=== PATIENT | male | born 1960 | race Caucasian/White ===

== ENCOUNTER 2017-03-23 22:37 | Observation (INO) | payer OTHER ==
[~2017-03-23] VITALS: Ht 180.3 cm; Wt 100.5 kg
[2017-03-23 23:48] VITALS: PULSE 70
[2017-03-23 23:56] VITALS: BP 172/81; PULSE 69; RESP 18; O2SAT 93
[2017-03-24] VITALS (8 sets, daily range): BP systolic 107–183; BP diastolic 73–97; PULSE 62–87; RESP 18–20; O2SAT 93–98
[2017-03-24] MEDS ORDERED: MTH10T PO (00:32)
[2017-03-24] MEDS ORDERED: METH5SOL PO (00:32)
[2017-03-24] MEDS ORDERED: LISI10TA PO ×2 (00:32→16:28)
[2017-03-24] MEDS ORDERED: OXYC-474 PO (00:32)
[2017-03-24] MEDS ORDERED: LAC10 PO ×2 (00:32→16:28)
[2017-03-24] MEDS ORDERED: THIA100T64 PO ×2 (00:32→16:28)
[2017-03-24] MEDS ORDERED: HYDR25TA4 PO ×2 (00:32→16:28)
--- NOTE | 2017-03-24 00:33 | NUR ---
Admit Pt to floor from [facility] at 2340. Denies any chest pain. States chronic back pain. Oriented and alert, but somewhat drowsy. States he received usual home dose of methadone at [place]. MD here to see patient.
[2017-03-24] MEDS ORDERED: Senna-Docusate 8.6-50 mg Tablet PO PRN (00:50)
[2017-03-24] MEDS ORDERED: Polyethylene Glycol (PEG) 17 Gm Powder PO PRN (00:50)
[2017-03-24] MEDS ORDERED: Alum-Mag Hydrox-Simeth 30 mL Suspension PO PRN (00:50)
[2017-03-24] MEDS ORDERED: Ondansetron 2 mg/mL 2 mL Inj IVPUSH PRN (00:50)
--- NOTE | 2017-03-24 01:38 | PCM.HPMED ---
Subjective Date of Service March 24, 2017 Primary Provider: Admitting Physician: Belén العراقي DO Primary Care Physician: Guanaco Messina MD Attending Physician: Belén العراقي DO Admit Status: Direct Admit ([place]) Chief Complaint: chest pain and left arm pain History of Present Illness: Juan is a 56 yo left handed male with history of HTN, alcoholic hepatitis, chronic pain on Methadone, and tobacco dependence who presents from [facility] for further evaluation of his chest pain. Patient originally reported to his PCP for left sided dull chest pain x 1 week with left arm numbness. He was found to have a mildly abnormal EKG and unequal arm BP measurements, so he was sent to the ED for further evaluation. He reports the CP has been intermittent for the past 6 months, but the arm numbness is new. He has no knowledge about the arm BP discrepancies. He describes his chest pain as right under his left nipple line and is dull in nature. Nothing triggers it, nothing makes it better or worse. It generally lasts 20-30 mins. The left arm numbness only began a few days ago. Originally was mostly in his left shoulder and elbow, but has now involved his left hand, specifically the first, second, and fifth digit. He denies any recent repetitive or hard labor or trauma. Has not noticed any specific trigger. With his CP, he denies any associated diaphoresis, n/v, cough, MCBRIDE, or vision changes. He has noted increasing SOB in the past few weeks. He reports only walking about 25-30 feet before getting winded. He sleeps only on 1 pillow at night and is comfortable with that. He also endorses occasional lightheadedness with getting up too fast or bending forward. He is not on any inhaler and does not think he has ever been diagnosed with COPD. He is currently on Lactulose TID, which he says is for his liver, but he does not think he has a history of hepatitis. His PO intake has been adequate and he denies any recent weight change. His notes his abdominal girth has been increasing in the past year. Has not been sick recently, denies any f/c , cough, or wheezing. He continues to be a heavy smoker, about 1.5 ppd, and has been going to since August. He continues to have a few drinks intermittently. At [facility] ED, he had an EKG that showed IVCD, LAD, and non specific ST changes. He had a chest CT that was remarkable for severe Aortic Stenosis. and high grade stenosis of right subclavian artery per report His CBC and CMP were unremarkable and his Troponin was negative x2 and CKMB was 3.4. formerly [facility] Cardiothoracic surgeon was consulted and would like ACS r/o prior to any aortic procedure. Review of Systems: Complete ROS neg except as stated in the HPI Allergies Coded Allergies: No Known Allergies (Unverified , 03/23/17) Home Medications Methadone TID Thiamine daily Lisinopril HCTZ Lactulose TID PMH CAD Aortic Stenosis and Right subclavian stenosis HTN Alcoholic Hepatitis H/o Pancreatitis Alcohol Abuse Tobacco Dependence Chronic LBP on methadone suspect COPD Surgical History Reports Right knee surgery Bilateral ankle surgeries Family History Family history of alcoholism Social History Occupation: unemployed Hx Alcohol Use: Yes (Reports only 2-3 drinks per week now. Currently in AA) Hx Substance Use: No Hx Tobacco Use: Yes Smoking Status: Current Every Day Smoker Living Arrangement: with Family Exam Vital Signs Vital Sign - Last Date Time Temp Pulse Resp B/P Pulse Ox O2 Delivery O2 Flow Rate FiO2 03/23/17 23:56 36.7 69 18 172/81 93 Room Air Exam Gen: Obese male who appears in NAD while laying in bed, A&Ox3 HEENT: NC/AT, PERRLA, EOMI, sclera anicteric, oropharynx mildly dry, but pink. Neck: soft, NT, no JVD noted, positive hepatojugular reflux CV: Distant heart sounds, but RRR with harsh systolic murmur, Decreased left radial pulse Resp: CTAB, no w/r/c, normal resp effort, no cough Abd: Obese, mildly distended, tympanic to percussion, non tender, NABS MSK: MS grossly intact and equal, 3-4cm round fluctuant cyst on right medial wrist, not tender to palpation, no erythema. No clubbing or cyanosis noted. Neuro: No focal weakness, speaks fluent sentences, gait steady and normal. No tremors Skin: Warm, dry, intact, small scattered telangiectasias on abdomen and back Psych: Appropriate mood and affect, linear thought process, cooperative Assessment & Plan Juan is a 56 yo left handed male with history of HTN, alcoholic hepatitis, chronic pain on Methadone, and tobacco dependence who presents from [facility] for left sided dull chest pain x 1 week with left arm numbness. chest pain, POA Patient here for further eval of his left intermittent CP and left arm numbness. DDx unstable angina, vascular insufficiency, arrhythmia, Troponin neg x2 at [facility], and EKG did not show any acute changes. Will Trend one more value. Will place on Telemetry for CV monitoring Complete Echo in the AM, lipid panel, hgbA1c pending ASA given prior to transfer, no BB on admission with HR in the 60s Will hold off on Stress test due to severe until cardiology consultation Please consult cardiology in the AM, Dr. Rao was consulted prior to transfer and accepted admission CAD, POA Extensive atherosclerosis noted on his CT chest. Will continue his Lisinopril and HCTZ for now. ASA 81 daily started Lipid panel in the AM Aortic Stenosis and Subclavian Stenosis, POA Will need outpatient follow up with [facility] CT surgeons Will ask [facility] to push CT images to [facility] to clarify which arm had the high grade stenosis. His left arm pain could be due to subclavian steal. HTN, POA Elevated on admission today from right arm measurement. Will continue his home meds, but may need titration Alcoholic Hepatitis, POA LFTs stable, will continue his home Lactulose If abd increasingly distended, consider imaging Chronic pain on Methadone, POA Will continue his home Methadone dosing and Oxycodone 5mg prn break through pain Tobacco Dependence, POA Nicotine patch prn Alcohol Abuse, POA Patient reports only 2-3 drinks per week. Has been going to AA and not drinking heavily since August 2016. Will continue to monitor and place on CIWA if needed. Continue patient's thiamine Tylenol prn fever/pain Zofran prn nausea Code Status: Full Code Dispo: Pt admitted under obs status, Expected LOS <2 midnights, due to risk of adverse events, medical complexity, and decompensation. Pain Evaluation: Adequate Pain Control VTE Prophylaxis: Sub-Q Heparin (Unfractionated), SCDs Resuscitation Status: CPR: Attempt Resuscitation Attending Statement The patient was seen and examined together with house staff on 03/24/2017 and I agree with the history, exam and plan as outlined in the note above. Alexey Nelson DO March 24, 2017 00:57 Belén العراقي DO March 24, 2017 03:44
--- NOTE | 2017-03-24 04:22 | NUR ---
Sats Pt scored high risk for sleep apnea and is taking narcotics for pain. Placed on continuous pulse oximetry while sleeping. Room air sats have been in mid-upper 90's. Denies any chest pain. SCD's on, and tolerating these OK.
[2017-03-24 06:28] LABS: BASOPHILS % (AUTO) 0.6 % (0-3); EOSINOPHILS % (AUTO) 7.2 % (0-5); MONOCYTES % (AUTO) 14.9 % (4-12); Mean Corpuscular Hemoglobin 31.8 pg (27.0-35.0); Mean Corpuscular Volume 97.8 fL (81-100); NEUTROPHILS % (AUTO) 49.4 % (40-74); Platelet Count 124 bil/L (150-400)
[2017-03-24 07:15] LABS: Creatine Kinase 149 U/L (21-232)
[2017-03-24 07:24] LABS: TROPONIN T < 0.010 ug/L (0.0-0.011)
[2017-03-24 07:51] LABS: APPEARANCE,URINE CLEAR (CLEAR,HAZY); COLOR,URINE YELLOW (YELLOW); OCCULT BLOOD,URINE MODERATE (NEGATIVE); PH,URINE 5.5 (5.0-8.0); UROBILINOGEN,URINE NORMAL (NORMAL)
[2017-03-24] MEDS ORDERED: Heparin 5,000 Unit/mL Inj SUBQ SCH (08:30)
[2017-03-24] MEDS ORDERED: Sodium Chloride LOK Flush 10 mL Syringe IVFLUSH SCH (08:30)
--- NOTE | 2017-03-24 08:47 | NUR ---
Social Work: Screening Data: Pt is a 56 y/o male admitted for chest pain resolved. Pt's PCP is Dr Messina, pt's insurance is [employer]. EMR reviewed. No d/c planning needs anticipated at this time. PHOTONICS TECHNICIAN will continue to follow if needs arise. Assessment: Pt who is independent at baseline. Plan: Pt will d/c home via POV when medically stable. No d/c planning needs anticipated at this time. PHOTONICS TECHNICIAN will continue to follow if needs arise. ASHLEY Naqvi
[2017-03-24] MEDS: Lactulose 20 Gm/30 mL 30 mL Syrup PO SCH ×2 (09:15→14:29)
--- NOTE | 2017-03-24 14:35 | CONS ---
[address] [address] CONSULTATION REPORT PATIENT: XAVI ESCOTO : 1960 MR#: [id number] ADMIT: 03/23/2017 JOB ID: [id number] DATE OF SERVICE: 03/24/17 CARDIOLOGY CONSULTATION: IDENTIFICATION: Dr. العراقي has asked that I consult on this 56-year-old male admitted in transfer from [facility] with persistent chest discomfort and aortic arch disease. He denies any previous cardiac history although had a longstanding history of hypertension and tobacco addiction. He reports feeling well up until around two weeks ago when he ran out of his medications. Around 10 days ago, he noted worsening exertional dyspnea as well as a sharp steady pain in the left breast area that was persistent, there more than not, present around 90% of the time. This radiated somewhat into his left arm and he noted some left little finger and thumb numbness with reduced muscle strength with mild diffuse weakness. He felt that the discomfort worsened somewhat with exertion and activity although was persistent. He denies any other radiation and there is no pleuritic component or positional component to his discomfort. He has also noted progressive fatigue and reduced exercise capacity over the last few months. He denies any palpitations and notes no lightheadedness or presyncope except for when looking upward. He has never fallen or passed out. He was not checking his blood pressures at home. He denies any sense of claudication or resting dyspnea. He presented to Dr. Ceballos, his PCP, who noted disparate blood pressures in both arms and directed him to the emergency department. His EKG there showed a left anterior fascicular block but was otherwise normal and he had serial normal components. A CT angiogram was performed which I have personally reviewed with the radiologist here. This shows a 75% irregular stenosis at the aortic arch at the origin of the left subclavian artery which is likely occluded although reconstituted, likely by vertebral artery collaterals. There is sparing of the right subclavian artery and carotids. There is no evidence for any dissection. [facility] Cardiothoracic Surgery was consulted and recommended admission for rule out. Since admission, the patient continues to have mild persistent chest discomfort but does admit that it improved somewhat since his blood pressure has improved. CARDIAC RISK FACTORS: Longstanding history of hypertension, and has smoked two packs per day for 45 years, currently smoking 1-1/2 packs per day. He denies any history of diabetes and is uncertain of his cholesterol status. He has a fairly strong family history of coronary artery disease with mother requiring CABG in her 50s and a brother dying at age 37 from a heart attack. PAST MEDICAL HISTORY: Notable for alcohol abuse for which he is currently in since August 2016 and is currently drinking three beers twice a week for a total of six beers per week. He has a history of alcoholic hepatitis and pancreatitis. He has opioid dependent chronic low back pain on methadone and has probable COPD although he states this has never been diagnosed. He is status post right knee surgery and bilateral ankle surgery. MEDICATIONS: 1. Methadone 10 mg 4 tablets daily. 2. Percocet p.r.n. 3. Thiamine 100 mg daily. 4. Lactulose 45 mL three times a day. 5. Lisinopril 20 mg daily. 6. Hydrochlorothiazide 25 mg daily. ALLERGIES: No known drug allergies. FAMILY HISTORY: As above. 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 REVIEW OF SYSTEMS: A complete review is performed and is notable for the absence of any recent fevers or chills. He admits to a 10-pound weight gain over the last several months. He denies any recent vision change or ENT problems. Denies any chronic cough or sputum production or hemoptysis. Denies any peptic ulcer disease or GI blood loss. Denies any genitourinary complaints or hematuria. No unusual musculoskeletal complaints. Denies any previous stroke or other neurologic symptoms. Denies any history of thyroid or bleeding disorder. No history of any unusual anxiety or depression. PHYSICAL EXAMINATION: Pleasant, moderately obese white male, in no distress. HR 69, BP 173/84 in the right arm, 124/85 in the left arm. Weight 100.5 kg. O2 saturation is 93% on room air. Skin: Warm and dry. HEENT: EOMI without arcus. Has moderately poor dentition. Lungs: Hyperresonant to percussion with diffusely reduced breath sounds with coarse expiratory wheeze. No rales. CV: Nonpalpable PMI with a regular rate and rhythm with a soft S1 and S2 with a 1/6 systolic ejection murmur at the upper sternal border. There is a fairly prominent bruit noted in the left upper chest with radiation to both carotids which have a normal upstroke. JVP is 4-5 cm. Femoral pulses are 2+ bilaterally without bruit and dorsalis pedis pulses are 2+ bilaterally. Posterior tibial pulses are nonpalpable. Abdomen: Mildly obese, but slightly distended, but nontender with normal bowel tones and no bruits. Extremities: Warm without any clubbing, cyanosis or edema. He has good capillary refill in both hands including the left. Neuro: Moves all four extremities. Psych: Awake, alert and oriented. LABORATORY: White count 4.8 with hematocrit of 36% and a platelet count of a 124,000. Potassium 4.5 with a BUN of 19 and a creatinine of 0.75. Glucose 104. A1c pending. Troponin remained normal. LDL is 78 with a total cholesterol of 139, and an HDL of 47. TSH 2.3. ECG: ECG shows sinus rhythm with a mild first-degree AV block with a ME interval of 216 msec with probable LVH and a borderline left anterior fascicular block but no significant ST-segment shifts. IMPRESSION: 1. Chest pain. My suspicion for an acute coronary syndrome is extremely low given his persistent chest discomfort with now serial negative troponins and no concerning ECG abnormalities. I doubt that his chest discomfort is related to his aortic disease given that there does not appear to be any significant hemodynamic impact although his discomfort could be a reflection of his significant hypertension since stopping his medications. In addition, it is conceivable he could have some chest wall discomfort from his occluded left subclavian artery. I do not believe that he requires any acute ischemic evaluation although he is at risk for having significant underlying coronary artery disease given his multiple risk factors, and known PAD, and should undergo a myocardial perfusion imaging test, particularly if vascular surgery is being contemplated, but this can be deferred to the outpatient setting. Otherwise I would focus on his risk factor modification. 2. 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 I do not see any critical limb ischemia and he actually has fairly good capillary refill in his left hand. He has good distal pulses in his feet and all this would suggest the absence of any significant hemodynamic impact from his peripheral arterial disease although he could have some left arm claudication if his collaterals are insufficient. Again, I do not believe this requires any emergent evaluation or treatment as there is no evidence for any acute critical limb ischemia. I would recommend that he see a vascular surgeon as an outpatient to assess further his therapeutic options. 3. Hypertension. Some of his discomfort certainly could be a reflection of his significant hypertension since running out of his medications and this now appears to have improved. I would track his right upper arm blood pressure rather than his left, attempting to get his systemic blood pressure down to at least less than 140 as long as this does not provoke any evidence of reduced perfusion in his left upper extremity. I agree with resumption of his previous medications with perhaps some advancement of his lisinopril. I would avoid beta blockade as he has a first-degree AV block already. 4. Relative hyperlipidemia. While his cholesterol numbers are relatively good, with his known atherosclerotic disease, he should be started on statin therapy with close observation of his liver function given his history of alcohol hepatopathy. I would start at atorvastatin 20 mg daily, but this should be monitored closely. 5. Nicotine addiction. I spent considerable time with he and his discussing the need for tobacco abstinence for both of them. This should be supported. 6. Probable COPD. He clearly has a physical exam consistent with significant COPD. 7. History of alcohol abuse. Currently apparently in fairly good remission although he continues to drink some. RECOMMENDATION: 1. Resume his home medications with consideration for increasing his lisinopril to target a right upper extremity blood pressure in the 130-150 range as long as this does not provoke any evidence for vascular insufficiency in his left upper arm. 2. Check an echocardiogram to ensure the absence of any significant underlying ventricular or valvular heart disease. 3. Start atorvastatin 20 mg daily but with close observation of his liver function with advancement of his atorvastatin to maintain an LDL less than 70. 4. If his echocardiogram shows no concerning abnormalities and his blood pressure becomes adequately controlled, then I think he can be discharged with an outpatient myocardial perfusion study and outpatient referral to vascular surgery, but this can be deferred to his primary care physician. 5. Continue to support alcohol and tobacco abstinence. At this point, I will sign off. If you have any further questions or concerns, please do not hesitate to give me a call. I spent 1 hour and 58 minutes reviewing the patient's medical record, reviewing his imaging studies with the radiologist, interviewing and examining the patient, and answering his questions.
--- NOTE | 2017-03-24 15:02 | NUR ---
Pain/Blood Pressure Patient resting in bed. stated that he had 8/10 back pain that is chronic and 3/10 left sided chest pain that is achy and intermittent. oxycodone given @ 1430 and patient was asleep when returning to reassess pain. MD notified of chest pain. he stated it was now a 7/10. patient denies radiating pain, dizziness or shortness of breath. Patient noted to have change in blood pressure in left vs right arm. MD notified. see flow sheet.
--- NOTE | 2017-03-24 16:25 | PCM.DIMED ---
Discharge Instructions Date of Service March 24, 2017 Dates of Hospitalization March 23, 2017 at 23:46 Discharge Diagnosis Discharge Diagnosis Chest discomfort, PR ruled our, recommend outpatient MIBI Aortic Arch stenosis, recommend vascular surgery evaluation soon as out patient Diet Heart Healthy Activity Limited until seen by PCP Call your provider Chest pain Patient Instructions follow up with your doctor next few days. Follow-up with PCP in: 1 week Tiffani Colon MD March 24, 2017 16:25
[2017-03-24] MEDS ORDERED: ATOR20TA65 PO (16:28)
[2017-03-24] MEDS ORDERED: ASPI-973 PO (16:30)
--- NOTE | 2017-03-24 16:33 | DRSVH ---
[facility] [address] [place] [address] Echocardiogram Report Name: XAVI ESCOTO DStudy Date: 10/2017 Height: 71 in Hospital Exam Location: [facility] Weight: 222 lb Gender: Male BSA: 2.2 m2 : 1960 Age: 56 yrs BP: 183/97 mmHg Reason For Study: Chest pain Ordering Physician: Performed By: Suze PAIST [facility] Interpretation Summary The left ventricle is grossly normal size. The ejection fraction is estimated to be 55-60%. Borderline right ventricular enlargement. The right ventricular systolic function is normal. No significant valvular pathology seen. The ascending aorta is mildly enlarged. Procedure: A two-dimensional transthoracic echocardiogram with color flow and Doppler was performed. The study quality was technically adequate. There is no prior echocardiogram noted for this patient. A contrast injection of Definity was performed to improve assessment of LV function. The patient was in normal sinus rhythm during the exam. Left Ventricle: The left ventricle is grossly normal size. Proximal septal thickening is noted. There is no echo evidence for significant left ventricular outflow tract obstruction. A false chord is noted (normal variant). The ejection fraction is estimated to be 55-60%. There are no focal wall motion abnormalities. Spectral Doppler of the mitral valve shows a normal E/A wave ratio. The E/E' ratio is abnormal. Right Ventricle: Borderline right ventricular enlargement. The right ventricular systolic function is normal. Atria: Both atria are normal in size. There is no Doppler evidence for an interatrial shunt. Mitral Valve: There is mild mitral annular calcification. There is trace mitral regurgitation. Aortic Valve: The aortic valve is slightly calcified. The aortic valve is trileaflet. The aortic valve opens well. There is no aortic valve stenosis. There is trace aortic regurgitation. Tricuspid Valve: The tricuspid valve is normal in structure and function. Pulmonary artery pressures cannot be estimated because of the lack of a measurable TR jet velocity. There is trace tricuspid regurgitation. Pulmonic Valve: The pulmonic valve is not well seen, but is grossly normal. Great Vessels: The aortic root is normal size. The ascending aorta is mildly enlarged. The aortic arch could not be visualized. The IVC is of normal diameter and collapses greater than 50% with a sniff. This suggests a low right atrial pressure of 3 mm Hg. Pericardium/ Pleura There is no pericardial effusion. There is an anterior echo-free space consistent with a fat pad. MMode/2D Measurements & Calculations LVIDd: 4.9 cm RA long axis LVOT diam LVIDs: 3.3 cm LA A2 area: 22.1 cm FS: 33.6 % LA A4 area: 22.2 cm RA area Ao root diam EPSS: 0.60 cm LA length (vol): 6.1 cm IVSd: 0.99 cm LA vol: 68.2 ml : 16.8 cm asc Aorta LVPWd: 1.0 cm LA vol index RA vol: 44.6 mlDiam: 3.5 cm RA : 20.2 mm2 IVC diam: 1.9 cm LV barnes. diameter/BSA LV sys. diameter/BSA RVD1 (basal) RVD2 (mid) (cm/m^2): 2.2 (cm/m^2): 1.5 : 2.3 cm TAPSE: 2.4 cm Doppler Measurements & Calculations Ao V2 max MV E max saeid MV E/A: 1.1 PA V2 max : 105.7 cm/sec : 77.4 cm/sec Med Peak E' Saeid : 65.8 cm/sec Ao max PG MV A max saeid PA mean PG : 4.5 mmHg : 72.9 cm/sec E/E' med: 11.9 : 0.98 mmHg Ao mean PG MV P1/2t: 81.4 msec Lat Peak E' Saeid PA Accel Time : 0.09 sec LVOT Max Saeid E/E' lat: 7.5 : 78.9 cm/sec E/e' average: 9.7 JOSEPH(I,D): 3.4 cm sev ratio MV dec time MV P1/2t max saeid Ao V2 mean LV V1 max PG : 0.27 sec : 80.8 cm/sec MVA(P1/2t): 2.7 cm2 Ao V2 VTI: 27.1 cm LV V1 VTI JOSEPH(V,D): 3.7 cm2 : 18.5 cm PA V2 mean JOSEPH indexed to BSA : 47.0 cm/sec (cm^2/m^2): 1.5 Reading Physician:TERE
--- NOTE | 2017-03-24 16:36 | PCM.DC.MED ---
Discharge Summary Date of Service March 24, 2017 Dates of Hospitalization Date of Hospital Admission March 23, 2017 at 23:46 Date of Discharge: March 24, 2017 Providers: Admitting Physician: Belén العراقي DO Primary Care Physician: Guanaco Messina MD Attending Physician: Belén العراقي DO Diagnosis at Time of Discharge Diagnosis at Time of Discharge Chest discomfort, DE ruled our, recommend outpatient MIBI Aortic Arch stenosis, recommend vascular surgery evaluation soon as out patient Consultations CONSULTATION REPORT PATIENT: XAVI ESCOTO : 1960 MR#: [id number] ADMIT: 03/23/2017 JOB ID: [id number] DATE OF SERVICE: 03/24/17 CARDIOLOGY CONSULTATION: IDENTIFICATION: Dr. العراقي has asked that I consult on this 56-year-old male admitted in transfer from [facility] with persistent chest discomfort and aortic arch disease. He denies any previous cardiac history although had a longstanding history of hypertension and tobacco addiction. He reports feeling well up until around two weeks ago when he ran out of his medications. Around 10 days ago, he noted worsening exertional dyspnea as well as a sharp steady pain in the left breast area that was persistent, there more than not, present around 90% of the time. This radiated somewhat into his left arm and he noted some left little finger and thumb numbness with reduced muscle strength with mild diffuse weakness. He felt that the discomfort worsened somewhat with exertion and activity although was persistent. He denies any other radiation and there is no pleuritic component or positional component to his discomfort. He has also noted progressive fatigue and reduced exercise capacity over the last few months. He denies any palpitations and notes no lightheadedness or presyncope except for when looking upward. He has never fallen or passed out. He was not checking his blood pressures at home. He denies any sense of claudication or resting dyspnea. He presented to Dr. Ceballos, his PCP, who noted disparate blood pressures in both arms and directed him to the emergency department. His EKG there showed a left anterior fascicular block but was otherwise normal and he had serial normal components. A CT angiogram was performed which I have personally reviewed with the radiologist here. This shows a 75% irregular stenosis at the aortic arch at the origin of the left subclavian artery which is likely occluded although reconstituted, likely by vertebral artery collaterals. There is sparing of the right subclavian artery and carotids. There is no evidence for any dissection. [facility] Cardiothoracic Surgery was consulted and recommended admission for rule out. Since admission, the patient continues to have mild persistent chest discomfort but does admit that it improved somewhat since his blood pressure has improved. CARDIAC RISK FACTORS: Longstanding history of hypertension, and has smoked two packs per day for 45 years, currently smoking 1-1/2 packs per day. He denies any history of diabetes and is uncertain of his cholesterol status. He has a fairly strong family history of coronary artery disease with mother requiring CABG in her 50s and a brother dying at age 37 from a heart attack. PAST MEDICAL HISTORY: Notable for alcohol abuse for which he is currently in AA since August 2016 and is currently drinking three beers twice a week for a total of six beers per week. He has a history of alcoholic hepatitis and pancreatitis. He has opioid dependent chronic low back pain on methadone and has probable COPD although he states this has never been diagnosed. He is status post right knee surgery and bilateral ankle surgery. MEDICATIONS: 1. Methadone 10 mg 4 tablets daily. 2. Percocet p.r.n. 3. Thiamine 100 mg daily. 4. Lactulose 45 mL three times a day. 5. Lisinopril 20 mg daily. 6. Hydrochlorothiazide 25 mg daily. ALLERGIES: No known drug allergies. FAMILY HISTORY: As above. 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 REVIEW OF SYSTEMS: A complete review is performed and is notable for the absence of any recent fevers or chills. He admits to a 10-pound weight gain over the last several months. He denies any recent vision change or ENT problems. Denies any chronic cough or sputum production or hemoptysis. Denies any peptic ulcer disease or GI blood loss. Denies any genitourinary complaints or hematuria. No unusual musculoskeletal complaints. Denies any previous stroke or other neurologic symptoms. Denies any history of thyroid or bleeding disorder. No history of any unusual anxiety or depression. PHYSICAL EXAMINATION: Pleasant, moderately obese white male, in no distress. HR 69, BP 173/84 in the right arm, 124/85 in the left arm. Weight 100.5 kg. O2 saturation is 93% on room air. Skin: Warm and dry. HEENT: EOMI without arcus. Has moderately poor dentition. Lungs: Hyperresonant to percussion with diffusely reduced breath sounds with coarse expiratory wheeze. No rales. CV: Nonpalpable PMI with a regular rate and rhythm with a soft S1 and S2 with a 1/6 systolic ejection murmur at the upper sternal border. There is a fairly prominent bruit noted in the left upper chest with radiation to both carotids which have a normal upstroke. JVP is 4-5 cm. Femoral pulses are 2+ bilaterally without bruit and dorsalis pedis pulses are 2+ bilaterally. Posterior tibial pulses are nonpalpable. Abdomen: Mildly obese, but slightly distended, but nontender with normal bowel tones and no bruits. Extremities: Warm without any clubbing, cyanosis or edema. He has good capillary refill in both hands including the left. Neuro: Moves all four extremities. Psych: Awake, alert and oriented. LABORATORY: White count 4.8 with hematocrit of 36% and a platelet count of a 124,000. Potassium 4.5 with a BUN of 19 and a creatinine of 0.75. Glucose 104. A1c pending. Troponin remained normal. LDL is 78 with a total cholesterol of 139, and an HDL of 47. TSH 2.3. ECG: ECG shows sinus rhythm with a mild first-degree AV block with a [place] interval of 216 msec with probable LVH and a borderline left anterior fascicular block but no significant ST-segment shifts. IMPRESSION: 1. Chest pain. My suspicion for an acute coronary syndrome is extremely low given his persistent chest discomfort with now serial negative troponins and no concerning ECG abnormalities. I doubt that his chest discomfort is related to his aortic disease given that there does not appear to be any significant hemodynamic impact although his discomfort could be a reflection of his significant hypertension since stopping his medications. In addition, it is conceivable he could have some chest wall discomfort from his occluded left subclavian artery. I do not believe that he requires any acute ischemic evaluation although he is at risk for having significant underlying coronary artery disease given his multiple risk factors, and known PAD, and should undergo a myocardial perfusion imaging test, particularly if vascular surgery is being contemplated, but this can be deferred to the outpatient setting. Otherwise I would focus on his risk factor modification. 2. 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 I do not see any critical limb ischemia and he actually has fairly good capillary refill in his left hand. He has good distal pulses in his feet and all this would suggest the absence of any significant hemodynamic impact from his peripheral arterial disease although he could have some left arm claudication if his collaterals are insufficient. Again, I do not believe this requires any emergent evaluation or treatment as there is no evidence for any acute critical limb ischemia. I would recommend that he see a vascular surgeon as an outpatient to assess further his therapeutic options. 3. Hypertension. Some of his discomfort certainly could be a reflection of his significant hypertension since running out of his medications and this now appears to have improved. I would track his right upper arm blood pressure rather than his left, attempting to get his systemic blood pressure down to at least less than 140 as long as this does not provoke any evidence of reduced perfusion in his left upper extremity. I agree with resumption of his previous medications with perhaps some advancement of his lisinopril. I would avoid beta blockade as he has a first-degree AV block already. 4. Relative hyperlipidemia. While his cholesterol numbers are relatively good, with his known atherosclerotic disease, he should be started on statin therapy with close observation of his liver function given his history of alcohol hepatopathy. I would start at atorvastatin 20 mg daily, but this should be monitored closely. 5. Nicotine addiction. I spent considerable time with he and his discussing the need for tobacco abstinence for both of them. This should be supported. 6. Probable COPD. He clearly has a physical exam consistent with significant COPD. 7. History of alcohol abuse. Currently apparently in fairly good remission although he continues to drink some. RECOMMENDATION: 1. Resume his home medications with consideration for increasing his lisinopril to target a right upper extremity blood pressure in the 130-150 range as long as this does not provoke any evidence for vascular insufficiency in his left upper arm. 2. Check an echocardiogram to ensure the absence of any significant underlying ventricular or valvular heart disease. 3. Start atorvastatin 20 mg daily but with close observation of his liver function with advancement of his atorvastatin to maintain an LDL less than 70. 4. If his echocardiogram shows no concerning abnormalities and his blood pressure becomes adequately controlled, then I think he can be discharged with an outpatient myocardial perfusion study and outpatient referral to vascular surgery, but this can be deferred to his primary care physician. 5. Continue to support alcohol and tobacco abstinence. At this point, I will sign off. If you have any further questions or concerns, please do not hesitate to give me a call. I spent 1 hour and 58 minutes reviewing the patient's medical record, reviewing his imaging studies with the radiologist, interviewing and examining the patient, and answering his questions. Daniel Kim MD 03/24/17 1214 Procedures Cardiac Echo Impression At the time of discharge echo report not available, reviewed with Dr. Kim over the phone and no obvious wall moption abnormalities, primary care provider should request echo report for their records. Brief History Xavi is a 56 yo left handed male with history of HTN, alcoholic hepatitis, chronic pain on Methadone, and tobacco dependence who presents from [facility] for further evaluation of his chest pain. Patient originally reported to his PCP for left sided dull chest pain x 1 week with left arm numbness. He was found to have a mildly abnormal EKG and unequal arm BP measurements, so he was sent to the ED for further evaluation. He reports the CP has been intermittent for the past 6 months, but the arm numbness is new. He has no knowledge about the arm BP discrepancies. He describes his chest pain as right under his left nipple line and is dull in nature. Nothing triggers it, nothing makes it better or worse. It generally lasts 20-30 mins. The left arm numbness only began a few days ago. Originally was mostly in his left shoulder and elbow, but has now involved his left hand, specifically the first, second, and fifth digit. He denies any recent repetitive or hard labor or trauma. Has not noticed any specific trigger. With his CP, he denies any associated diaphoresis, n/v, cough, MCBRIDE, or vision changes. He has noted increasing SOB in the past few weeks. He reports only walking about 25-30 feet before getting winded. He sleeps only on 1 pillow at night and is comfortable with that. He also endorses occasional lightheadedness with getting up too fast or bending forward. He is not on any inhaler and does not think he has ever been diagnosed with COPD. He is currently on Lactulose TID, which he says is for his liver, but he does not think he has a history of hepatitis. His PO intake has been adequate and he denies any recent weight change. His notes his abdominal girth has been increasing in the past year. Has not been sick recently, denies any f/c , cough, or wheezing. He continues to be a heavy smoker, about 1.5 ppd, and has been going to AA since August. He continues to have a few drinks intermittently. At [facility] ED, he had an EKG that showed IVCD, LAD, and non specific ST changes. He had a chest CT that was remarkable for severe Aortic Stenosis. and high grade stenosis of right subclavian artery per report His CBC and CMP were unremarkable and his Troponin was negative x2 and CKMB was 3.4. [facility] Cardiothoracic surgeon was consulted and would like ACS r/o prior to any aortic procedure. Hospital Course Xavi is a 56 yo left handed male with history of HTN, alcoholic hepatitis, chronic pain on Methadone, and tobacco dependence who presents from [facility] for left sided dull chest pain x 1 week with left arm numbness. chest pain, POA resolved Patient here for further eval of his left intermittent CP and left arm numbness. DDx unstable angina, vascular insufficiency, arrhythmia, Troponin neg x2 at [facility], and EKG did not show any acute changes. Will Trend one more value. discharge home recommend out patient Myocardial Scan soon CAD, POA Extensive atherosclerosis noted on his CT chest. Will continue his Lisinopril and HCTZ for now. ASA 81 daily started Lipid panel in the AM Aortic Stenosis and Subclavian Stenosis, POA recommend out patient vascular surgury evaluation soon HTN, POA Elevated on admission today from right arm measurement. Will continue his home meds, but may need titration Alcoholic Hepatitis, POA LFTs stable, will continue his home Lactulose If abd increasingly distended, consider imaging Chronic pain on Methadone, POA Will continue his home Methadone dosing and Oxycodone 5mg prn break through pain Tobacco Dependence, POA Nicotine patch prn Alcohol Abuse, POA Patient reports only 2-3 drinks per week. Has been going to AA and not drinking heavily since August 2016. Will continue to monitor and place on CIWA if needed. Continue patient's thiamine Tylenol prn fever/pain Zofran prn nausea Code Status: Full Code Dispo: Pt admitted under obs status, Expected LOS <2 midnights, due to risk of adverse events, medical complexity, and decompensation. Exam Vital Signs (Last) Date Time Temp Pulse Resp B/P Pulse Ox O2 Delivery O2 Flow Rate FiO2 03/24/17 13:41 69 107/73 03/24/17 13:40 36.8 20 98 Room Air Test 03/24/17 05:57 03/24/17 06:32 White Blood Count 4.8th/mm3 (3.8-10.1) Red Blood Count 3.68mil/mm3 (4.40-5.80) Hemoglobin 11.7g/dL (13.8-17.2) Hematocrit 36.0% (41.0-50.0) Mean Corpuscular Volume 97.8fL (81-100) Mean Corpuscular Hemoglobin 31.8pg (27.0-35.0) Mean Corpuscular Hemoglobin Concent 32.5% (32.0-37.0) Red Cell Distribution Width 13.5% (12.3-15.4) Platelet Count 124bil/L (150-400) Neutrophils (%) (Auto) 49.4% (40-74) Lymphocytes (%) (Auto) 27.7% (14-46) Monocytes (%) (Auto) 14.9% (4-12) Eosinophils (%) (Auto) 7.2% (0-5) Basophils (%) (Auto) 0.6% (0-3) Sodium Level 139mEq/L (134-144) Potassium Level 4.5mEq/L (3.5-5.2) Chloride Level 101mEq/L (97-108) Carbon Dioxide Level 24mmol/L (18-29) Blood Urea Nitrogen 19mg/dL (6-24) Creatinine 0.75mg/dL (0.76-1.27) Estimat Glomerular Filtration Rate 114mL/min (>59) Glucose Level 104mg/dL (60-99) Calcium Level 8.9mg/dL (8.5-10.1) Magnesium Level 2.0mg/dL (1.6-2.6) Total Bilirubin 0.6mg/dL (0.0-1.2) Aspartate Amino Transf (AST/SGOT) 42U/L (0-50) Alanine Aminotransferase (ALT/SGPT) 33U/L (0-44) Alkaline Phosphatase 65U/L (25-150) Total Creatine Kinase 149U/L (21-232) Troponin T < 0.010ug/L (0.0-0.011) Total Protein 6.5g/dL (6.4-8.4) Albumin 3.7g/dL (3.4-5.0) Triglycerides Level 69mg/dL (0-149) Cholesterol Level 139mg/dL (100-199) LDL Cholesterol, Calculated 78.200mg/dL (0-99) VLDL Cholesterol 13.800mg/dL HDL Cholesterol 47mg/dL (>39) Cholesterol/HDL Ratio 2.96 (0.0-4.4) Thyroid Stimulating Hormone (TSH) 2.330uIU/mL (0.450-4.500) Urine Color Yellow (YELLOW) Urine Appearance Clear (CLEAR,HAZY) Urine pH 5.5 (5.0-8.0) Urine Specific [place] 1.015 (1.003-1.035) Urine Protein Negativemg/dL (NEG,TRACE) Urine Glucose (UA) Negativemg/dL (NEGATIVE) Urine Ketones Negativemg/dL (NEGATIVE) Urine Occult Blood Moderate (NEGATIVE) Urine Nitrite Negative (NEGATIVE) Urine Bilirubin Negative (NEGATIVE) Urine Urobilinogen Normalmg/dL (NORMAL) Urine Leukocyte Esterase Negative (NEGATIVE) Urine RBC 3-10/hpf (0-2) Urine WBC 0-5/hpf (0-5) Urine Epithelial Cells Occasional/hpf (NONE-MOD) Urine Crystals None seen (NONE SEEN) Urine Bacteria None/hpf (NONE-FEW) Urine Hyaline Casts None/lpf (NONE) Urine Granular Casts None seen (NONE SEEN) Urine Waxy Casts None seen (NONE SEEN) Urine Red Blood Cell Casts None seen (NONE SEEN) Urine White Blood Cell Casts None seen (NONE SEEN) Urine Mucus None seen (None Seen) Urine Trichomonas None seen (NONE SEEN) Urine Yeast None (NONE SEEN) Urinalysis Comment None Urine Culture Reflexed Not indicated Discharge Medications Discharge Medications Aspirin (Aspirin) 81 Mg Tablet 81 MG PO DAILY Prescribed by: Tiffani BETTS MD Atorvastatin Calcium (Atorvastatin Calcium) 20 Mg Tablet 20 MG PO HS Prescribed by: Tiffani BETTS MD Hydrochlorothiazide (Hydrochlorothiazide) 25 Mg Tablet 25 MG PO DAILY Prescribed by: Tiffani BETTS MD Lactulose (Lactulose) 10 Gm/15 Ml Solution 10 GM PO TID Prescribed by: Tiffani BETTS MD Lisinopril (Lisinopril) 10 Mg Tablet 10 MG PO DAILY Prescribed by: Tiffani BETTS MD Methadone (Methadone) 5 Mg/5 Ml Solution 20 MG PO MORNING (Reported) Methadone (Methadone) 10 Mg Tab 10 MG PO DAILY (Reported) Thiamine Mononitrate (Vitamin B-1) 100 Mg Tablet 100 MG PO DAILY Prescribed by: Tiffani BETTS MD As needed Oxycodone (Roxicodone) 5 Mg Tablet 10 MG PO Q4H PRN PRN For Pain (Reported) Followup Plan Discharge Diet: Heart Healthy Discharge Activity: Limited until seen by PCP Patient Instructions follow up with your doctor next few days. Follow-up with PCP in: 1 week Attending Statement 40 minutes time spent with patient in discharge process today so far copies to: Guanaco Messina MD, D Geoffrey MD March 24, 2017 16:36
--- NOTE | 2017-03-24 16:56 | NUR ---
Discharge IV discontinued fully intact. Tele removed. All personal belongings given to patient and spouse. Discharge instructions explained to and patient who both verbalize understanding and agree to plan of care. Patient ambulated off of unit with SN.
== END 2017-03-24 16:30 | disposition home or self-care (01) ==
LOC: MPC 23:46
PROVIDERS: ADMIT Internal Medicine; ATTEND Internal Medicine
DX: R07.89 Other chest pain (principal); I70.0 Atherosclerosis of aorta; R20.0 Anesthesia of skin; I25.10 Atherosclerotic heart disease of native coronary artery without angina pectoris; I10 Essential (primary) hypertension; I70.8 Atherosclerosis of other arteries; F17.210 Nicotine dependence, cigarettes, uncomplicated; K70.10 Alcoholic hepatitis without ascites; F10.10 Alcohol abuse, uncomplicated; I35.0 Nonrheumatic aortic (valve) stenosis; G89.29 Other chronic pain; M54.5 Low back pain; Z79.891 Long term (current) use of opiate analgesic; Z82.49 Family history of ischemic heart disease and other diseases of the circulatory system
CPT/HCPCS: 36415; 80053; 80061; 81000; 82550; 83036; 83735; 84443; 84484; 85025; 93005; C8929; G0378; G0379; J1644; Q9957